=== PATIENT | female | born 1945 | race Caucasian/White ===

== ENCOUNTER 2017-06-14 10:01 | Emergency (ER) | payer MEDICAID ==
[~2017-06-14] VITALS: Wt 105.0 kg
[~2017-06-14 10:01] MED LIST: ALEN70TA30 PO; ASPI-664 PO; BENA20TA48 PO; CALC-378 PO; DOCU-159 PO; LAS20 PO; METF500T4 PO; SAME MEDS; SIMV40TA3 PO; TYL500 PO
[2017-06-14] MEDS ORDERED: morphine 2 MG INJ IV STA (10:09)
--- NOTE | 2017-06-14 10:19 | ERD ---
ER Documentation Chief Complaint Chief Complaint RIGHT HIP PAIN S/P [facility] FALL, AMBULATORY ON SCENE, NO KO HPI 72-year-old female history of diabetes, hypertension, hyperlipidemia and O2 dependent chronic respiratory failure presents to the emergency department via rescue ambulance complaining of right hip and pelvic pain after fall. While leaving [facility] she stepped up and fell backwards onto her buttocks. As per paramedics at the scene she was able to bear weight but complained of pain. There was no head injury, syncope or loss of consciousness. She denies headache , neck or back pain. No chest pain, palpitations, shortness of breath or abdominal pain. ROS All systems reviewed and are negative except as per history of present illness. Medications Home Meds Reported Medications Atorvastatin* (Atorvastatin*) 40 Mg Tablet, 40 MG PO QHS, #30 TAB 06/14/17 Famotidine* (Famotidine*) 20 Mg Tablet, 20 MG PO BID, #60 TAB 06/14/17 Gabapentin* (Gabapentin*) 100 Mg Capsule, 100 MG PO TID, #90 CAP 06/14/17 Furosemide* (Furosemide*) 40 Mg Tablet, 40 MG PO BID, TAB 06/14/17 Calcium Carbonate/Vitamin D3 ([place]ysco 500+D Tablet) 1 Each Tablet, 1 EACH PO BID, TAB 06/14/17 Benazepril Hcl* (Benazepril Hcl*) 20 Mg Tablet, 20 MG PO DAILY, #30 TAB 06/14/17 Aspirin (Low Dose Aspirin) 81 Mg Tablet.dr, 81 MG PO DAILY, #30 TAB 06/14/17 Alendronate Sodium* (Fosamax*) 70 Mg Tablet, 70 MG PO Q7D, #4 TAB 06/14/17 Discontinued Reported Medications Calcium Carbonate/Vitamin D3 (Calcium + D 600 Mg Tablet) 1 Tab Tablet, 1 TAB PO BID 06/05/12 Docusate Sodium* (Docusate Sodium*) 100 Mg Capsule, 100 MG PO BID 06/05/12 Acetaminophen (Acetaminophen) 500 Mg Tab, 500 MG PO Q6 Y, #1 06/05/12 [Same Meds] No Conflict Check 06/04/12 Benazepril Hcl* (Benazepril Hcl*) 20 Mg Tablet, PO DAILY 11/13/11 Simvastatin (Simvastatin) 40 Mg Tablet, PO DAILY 11/13/11 Metformin Hcl* (Metformin Hcl*) 500 Mg Tablet, PO BID 11/13/11 Furosemide (Lasix) 20 Mg Tab, PO DAILY 11/13/11 Aspirin* (Aspirin* EC) 81 Mg Tablet.dr, PO DAILY 11/13/11 Alendronate Sodium* (Fosamax*) 70 Mg Tablet, PO WEEKLY 11/13/11 Allergies Allergies: Coded Allergies: No Known Allergy (Verified , 06/14/17) PMhx/Soc Reviewed in chart. As per HPI. History of Surgery: Yes (fat tissue removed from right lower neck, rt eye catarac) Anesthesia Reaction: No Hx Neurological Disorder: No Hx Respiratory Disorders: No Hx Cardiac Disorders: Yes (htn) Hx Psychiatric Problems: No Hx Miscellaneous Medical Probl: No Hx Alcohol Use: No Hx Substance Use: No Hx Tobacco Use: No FmHx Not relevant to presenting complaint Physical Exam Vitals Vital Signs Date Time Temp Pulse Resp B/P Pulse Ox O2 Delivery O2 Flow Rate FiO2 06/14/17 10:08 97.9 75 17 144/88 93 Physical Exam Const: , Moderate distress due to pain Head: Atraumatic Eyes: Normal Conjunctiva ENT: Normal External Ears, Nose and Mouth. Neck: Full range of motion. Tender. Resp: Sounds diminished bilaterally without rales, rhonchi or wheezes Cardio: Regular rate and rhythm, no murmurs Abd: Soft, pes, non tender, non distended. Normal bowel sounds Skin: No petechiae or rashes Back: No midline or flank tenderness Ext: Right groin and hip tenderness. Extremity is not shortened or rotated. Distal neurovascular intact. Pulses 4+ in all extremities.. Neur: Awake and alert Psych: Normal Mood and Affect Result Diagram: 06/14/17 1025 06/14/17 1025 Results 24 hrs Laboratory Tests Test 06/14/17 10:25 White Blood Count 8.110^3/ul Red Blood Count 4.3010^6/ul Hemoglobin 13.3g/dl Hematocrit 42.8% Mean Corpuscular Volume 99.5fl Mean Corpuscular Hemoglobin 30.9pg Mean Corpuscular Hemoglobin Concent 31.1g/dl Red Cell Distribution Width 12.8% Platelet Count 58946^3/UL Mean Platelet Volume 10.5fl Neutrophils % 70.2% Lymphocytes % 21.1% Monocytes % 7.2% Eosinophils % 1.0% Basophils % 0.1% Nucleated Red Blood Cells % 0.0/100WBC Neutrophils # 5.710^3/ul Lymphocytes # 1.710^3/ul Monocytes # 0.610^3/ul Eosinophils # 0.110^3/ul Basophils # 0.010^3/ul Nucleated Red Blood Cells # 0.010^3/ul Sodium Level 144mmol/L Potassium Level 4.0mmol/L Chloride Level 95mmol/L Carbon Dioxide Level 41mmol/L Anion Gap 12 Blood Urea Nitrogen 18mg/dl Creatinine 0.58mg/dl Glucose Level 135mg/dl Calcium Level 8.9mg/dl Current Medications Medications (Trade) Dose Ordered Sig/Lexus Route PRN Reason Start Time Stop Time Status Last Admin Dose Admin Morphine Sulfate (morphine) 2 mg ONCE STAT IV 06/14/17 10:09 06/14/17 10:15 DC 06/14/17 10:31 IMAGING: PROCEDURE: Right hip series CLINICAL INDICATION: Right hip pain. TECHNIQUE: Two views of the right hip are submitted . Patient body habitus limits resolution. COMPARISON: None FINDINGS: The right hip appears aligned without evidence of fractures, dislocations or osteolytic lesions. Acetabulum appears intact.. IMPRESSION: Normal RPTAT: QQ .Winston Kessler MD, MD Date Time Electronically viewed and signed by .Winston Kessler MD, on 06/14/2017 11:01 .L/ PROCEDURE: XR Pelvis. CLINICAL INDICATION: Pain TECHNIQUE: Single AP view of the pelvis. Patient body habitus limits resolution COMPARISON: No prior studies are available for comparison. FINDINGS: The osseous structures, articular spaces, and surrounding soft tissues of the pelvis are unremarkable. No acute fracture or dislocation is seen. No radiopaque foreign body is identified. The osseous mineralization is normal. The sacroiliac joints, as visualized, are grossly unremarkable. IMPRESSION: 1. Unremarkable x-ray pelvis. RPTAT: QQ .Winston Kessler MD, MD Date Time Electronically viewed and signed by .Winston Kessler MD, on 06/14/2017 11:02 .L/ Procedures/MDM DOCUMENTS REVIEWED: ED nurse, prior ED, prior records REEXAMINATION/REEVALUATION: Time: 11:30. Doing well. Pain decreased. Ambulatory. MEDICAL DECISION MAKIN-year-old female history of diabetes, hypertension, hyperlipidemia and O2 dependent chronic respiratory failure presents to the emergency department via rescue ambulance complaining of right hip and pelvic pain after fall. No radiographic evidence of hip or pelvic fracture. No head injury, syncope, loss of consciousness or other indication for neuroimaging. Stable for discharge with appropriate analgesics, precautionary instructions and outpatient follow-up as counseled. Counseled patient and family regarding diagnostic workup, diagnosis and need for followup. Understands to return to ED if symptoms recur, worsen or any other concerns. Departure Diagnosis: Primary Impression: Fall with no significant injury Encounter type: initial encounter Qualified Code: W19.XXXA - Fall with no significant injury, initial encounter Additional Impression: Contusion of hip, right Encounter type: initial encounter Qualified Code: S70.01XA - Contusion of right hip, initial encounter Condition: Stable ALICIA RECINOS MD Jun 14, 2017 10:19
[2017-06-14 10:42] LABS: BASOPHILS % 0.1 % (0.0-2.0); EOSINOPHILS # 0.1 10^3/ul (0.0-0.5); HEMATOCRIT 42.8 % (37.0-47.0); HEMOGLOBIN 13.3 g/dl (12.0-16.0); LYMPHOCYTES # 1.7 10^3/ul (0.8-2.9); LYMPHOCYTES % 21.1 % (15.0-51.0); MEAN CORPUSCULAR HEMOGLOBIN 30.9 pg (29.0-33.0); MEAN CORPUSCULAR HGB CONC 31.1 g/dl (32.0-37.0); MEAN CORPUSCULAR VOLUME 99.5 fl (82.0-101.0); MEAN PLATELET VOLUME 10.5 fl (7.4-10.4); MONOCYTE # 0.6 10^3/ul (0.3-0.9); MONOCYTES % 7.2 % (0.0-11.0); NEUTROPHIL # 5.7 10^3/ul (1.6-7.5); NEUTROPHILS % 70.2 % (39.0-77.0); PLATELET COUNT 171 10^3/UL (140-415); RED CELL DISTRIBUTION WIDTH 12.8 % (11.5-14.5); WHITE BLOOD COUNT 8.1 10^3/ul (4.8-10.8)
[2017-06-14] MEDS ORDERED: ALEN70TA30 PO (10:58)
[2017-06-14] MEDS ORDERED: BENA20TA48 PO (10:59)
[2017-06-14] MEDS ORDERED: ASPI-664 PO (10:59)
[2017-06-14] MEDS ORDERED: CALC1TAB79 PO (11:00)
[2017-06-14 11:02] LABS: CALCIUM 8.9 mg/dl (8.4-10.2); CREATININE 0.58 mg/dl (0.44-1.00)
--- NOTE | 2017-06-14 11:02 | RADRPT ---
PROCEDURE: Right hip series CLINICAL INDICATION: Right hip pain. TECHNIQUE: Two views of the right hip are submitted . Patient body habitus limits resolution. COMPARISON: None FINDINGS: The right hip appears aligned without evidence of fractures, dislocations or osteolytic lesions. Ac etabulum appears intact.. IMPRESSION: Normal RPTAT: QQ .Winston Kessler MD, MD Date Time Electronically viewed and signed by .Winston Kessler MD, on 06/14/2017 11:01 .L/
--- NOTE | 2017-06-14 11:02 | RADRPT ---
PROCEDURE: XR Pelvis. CLINICAL INDICATION: Pain TECHNIQUE: Single AP view of the pelvis. Patient body habitus limits resolution COMPARISON: No prior studies are available for comparison. FINDINGS: The osseous structures, articular spaces, and surrounding soft tissues of the pelvis are unremarkabl e. No acute fracture or dislocation is seen. No radiopaque foreign body is identified. The osseous mineralization is normal. The sacroiliac joints, as visualized, are grossly unremarkable. IMPRESSION: 1. Unremarkable x-ray pelvis. RPTAT: QQ .Winston Kessler MD, MD Date Time Electronically viewed and signed by .Winston Kessler MD, MD on 06/14/2017 11:02 .L/
[2017-06-14] MEDS ORDERED: FURO40TA4 PO (11:28)
[2017-06-14] MEDS ORDERED: GABA100C14 PO (11:28)
[2017-06-14] MEDS ORDERED: FAMO20TA18 PO (11:28)
[2017-06-14] MEDS ORDERED: ATOR40TA68 PO (11:29)
[2017-06-14] MEDS ORDERED: ACET325T33 PO (11:39)
[2017-06-14 12:30] VITALS: BP 125/50; PULSE 73; RESP 16
== END 2017-06-14 12:45 | disposition home or self-care (01) ==
LOC: E/R 10:01
DX: S70.01XA Contusion of right hip, initial encounter (principal); E11.9 Type 2 diabetes mellitus without complications; I10 Essential (primary) hypertension; W18.39XA Other fall on same level, initial encounter; Y92.22 Religious institution as the place of occurrence of the external cause; Z79.82 Long term (current) use of aspirin
CPT/HCPCS: 72170; 73510; 80048; 85025; 96374; J2270; Z7502